=== PATIENT | female | born 1940 | race Native Hawaiian/Other Pacific Islander ===

== ENCOUNTER 2023-09-27 20:15 | Emergency (ER) | payer MEDICARE, SELFPAY ==
--- NOTE | ~2023-09-27 | XR_ITS ---
EXAMINATION: CHEST 2 VIEWS CLINICAL INFORMATION: productive cough, covid +. COMPARISON: No recent pertinent prior studies are available for comparison. TECHNIQUE: PA and lateral views of the chest obtained. FINDINGS: The lungs are mildly hypoexpanded with coarsened reticular markings bilaterally. No focal infiltrate, effusion, edema, or pneumothorax. Cardiac and mediastinal silhouettes are within normal limits for size with occasional within the tortuous aorta. Degenerative changes in the spine and shoulders.. No acute bony abnormality seen XR/XR chest 2V IMPRESSION: Mildly hypoexpanded with coarsened reticular markings but no focal airspace disease.
[2023-09-27 20:28] VITALS: BP 148/82; PULSE 86; O2SAT 97
[2023-09-27 20:29] VITALS: BP 131/49; PULSE 80; RESP 20; TEMP 38.3; O2SAT 96; BMI 22.3
--- NOTE | 2023-09-27 20:33 | ED_ITS ---
HPI - General Adult General Chief complaint: Dyspnea Stated complaint: SOB. COVID + Time Seen by Provider: 09/27/23 22:11 Source: patient, family (patient's daughter), EMS and engineering and operations director Mode of arrival: EMS Limitations: language barrier History of Present Illness HPI narrative: Patient is an 83 year old assigned female at with a history of DM presenting to the emergency department today with increased weakness secondary to COVID-19. Patient's daughter states that the patient is visiting from [place] and today, tested positive for COVID-19. Patient's daughter states that the patient has been weak so they thought it best to get her evaluated. Patient denies any dizziness, lightheadedness, abdominal pain, nausea, vomiting, fever, chills, blurry vision, double vision, loss of vision, chest pain, difficulty breathing, shortness of breath, back pain, night sweats, pain with urination, increased urinary frequency, increased urinary urgency, blood in her urine or stool, syncope or a near syncopal episode, recent trauma or falls, bowel incontinence, bladder incontinence, bowel retention, bladder retention, or any other complaints at this time. Onset (ago): day(s) (1) Severity: mild Relieving factors: none Exacerbating factors: none Associated symptoms: weakness Treatments prior to arrival: none Related Data Allergies Allergy/AdvReac Type Severity Reaction Status Date / Time No Known Allergies Allergy Verified 09/27/23 20:35 Review of Systems 2 Constitutional: Constitutional: Reports no additional constitutional complaints, Denies chills, Denies fever(s), Denies night sweats and Reports weakness Eyes: Eyes: Reports no additional eye complaints, Denies blurry vision, Denies change in vision, Denies diplopia, Denies eye discharge, Denies loss of vision and Denies eye pain ENT: Denies dizziness Cardiovascular: Cardiovascular: Reports no additional cardiovascular complaints, Denies chest pain, Denies lightheadedness, Denies Loss of Consciousness and Denies dyspnea Respiratory: Respiratory: Reports no additional respiratory complaints and Denies dyspnea Gastrointestinal: Gastrointestinal: Reports no additional gastrointestinal complaints, Denies abdominal pain, Denies melena, Denies hematochezia, Denies change in bowel habits and Denies change in stool character Genitourinary: Genitourinary: Denies hematuria, Denies urinary frequency, Denies dysuria, Denies urinary incontinence, Denies urinary hesitancy and Denies urinary urgency Musculoskeletal: Musculoskeletal: Reports no additional musculoskeletal complaints, Denies numbness and Denies tingling Neurologic: Denies dizziness, Denies loss of vision, Denies numbness, Denies tingling and Reports weakness Psychiatric: Psychiatric: Reports no additional psychiatric complaints Endocrine: Endocrine: Reports no additional endocrine complaints Hematologic/Lymphatic: Hematologic/Lymphatic: Reports no additional hematologic/lymphatic complaints Allergic/Immunologic: Allergic/Immunologic: Reports no additional allergic/immunologic complaints PMFSH Past Medical History Attestation statement: The following information was validated with the patient. (all information validated with the patient's daughter) Source: old records reviewed, obtained from family (patient's daughter provided additional history and confirmed the history provided by the patient.) and nursing notes reviewed Social History Social History Advance Directives: No Advance Directives Information Provided: No Physical Exam ED Vital Signs: Vital Signs - 24 hr 09/27/23 20:29 09/27/23 22:39 09/27/23 22:40 Temperature 100.9 F H 99.0 F 99.0 F Pulse Rate 80 Respiratory Rate 20 16 Blood Pressure 131/49 L Pulse Oximetry 96 Oxygen Delivery Method Room Air BMI result Body Mass Index 22.3 Const General: cooperative, no acute distress, alert and awake Nutritional Appearance: well nourished Orientation/consciousness: patient oriented x3 Limitations: no limitations HENMT Head: Yes normal to inspection and Yes atraumatic Ears: hearing grossly normal bilaterally and external ears normal General nose exam: Normal external nose present, no nasal discharge noted and no epistaxis Face and sinus: Yes normal facial exam, No abrasion and No laceration Mouth: Normal oral and palatal mucosa present, no drooling and no muffled voice Eyes General: appearance normal, both eyes and all related structures Periorbital: periorbital findings normal Eyelids: Yes eyelids normal Conjunctivae: conjunctivae normal Pupils: Equal, round and reactive pupils present EOM: EOMs intact bilaterally Neck Neck: Yes normal visual inspection, Yes full ROM and Yes no lymphadenopathy Chest Chest palpation & inspection: normal inspection of the chest Resp Effort & Inspection: normal respiratory effort and able to speak in complete sentences Auscultation: clear to auscultation bilaterally GI Inspection: Yes normal to inspection Neuro General: patient oriented x3 and moves all extremities Cranial nerves: Yes Equal, round and reactive pupils present Cognition (Neuro): normal cognition Motor exam (neuro): 5/5 motor strength present throughout Sensory Exam: Normal double simultaneous stimulation for sensation Coordination: [id number] test normal Extrem General: Yes normal to inspection, Yes full ROM and Yes capillary refill normal Psych Appearance: grossly normal Mental Status: mental status grossly normal Affect: normal affect Attitude: cooperative Thought process: Normal thought process present Thought content: Normal thought content present Insight: Good insight present (Psych) Course Course Course Narrative: This is a rapid medical exam: Additional HPI, ROS, PE not included below will be deferred to primary provider. Patient is an 83-year-old female presenting to the emergency department with complaint of difficulty breathing tonight. Patient tested positive for COVID this morning, has been symptomatic for the past 2 days. Also reports fever. States cough is productive. who is also positive for Covid was concerned and called 911. Daughter is here with patient and states they are visiting from [place]. Patient last took Tylenol at 2pm. Febrile in triage. Plan: CXR, labs Medications Administered Discontinued Medications Generic Name Dose Route Start Last Admin Trade Name Freq PRN Reason Stop Dose Admin Acetaminophen 650 mg 09/27/23 20:35 09/27/23 20:37 Acetaminophen 325 Mg Tablet PO 09/27/23 20:36 650 mg ONCE ONE Administration Medical Decision Making Medical Decision Making [facility] Narrative: Patient is an 83 year old assigned female at with a history of DM presenting to the emergency department today with weakness and COVID-19. Patient's physical exam was unremarkable. Patient's blood work was unremarkable. Patient's chest x-ray showed no acute process. I explained my physical exam findings as well as all test results to the patient and the patient's daughter. I answered all questions asked by the patient and the patient's daughter. I stressed the importance of the patient taking her medication as prescribed. I stressed the importance of the patient following up with her primary care provider. I stressed the importance of the patient returning to the emergency department immediately if her symptoms were to worsen or if she were to develop any dizziness, shortness of breath, difficulty breathing, chest pain, blurry vision, loss of vision, nausea, vomiting, abdominal pain, fever, chills, back pain, or any other complaints. Patient and the patient's daughter verbalized agreement and understanding with this treatment plan and discharge. Differential Diagnosis Differential Diagnoses: The differential diagnosis associated with the presentation includes COVID-19 Weakness Admission/Observation Consideration of admission/observation: Escalation of care including admission/observation considered Patient would have been admitted to the hospital had her work up had any findings where hospital admission was appropriate and her clinical presentation warranted hospital admission. Lab Data MDM Lab Attestation statement: I reviewed the patient's lab results. My interpretation of these studies and their corresponding values is that they are grossly normal. 09/27/23 20:44 09/27/23 20:44 Labs: Lab Results 09/27/23 Range/Units 20:44 WBC 4.4 L (4.8-10.8) X10*3/uL RBC 3.99 L (4.20-5.50) X10*6/uL Hgb 10.2 L (12.0-16.0) g/dl Hct 33.0 L (37.0-47.0) % MCV 82.7 (80.0-98.0) fL MCH 25.6 L (27.0-33.0) pg MCHC 30.9 L (31.0-35.0) g/dl RDW 16.0 (11.0-16.0) % Plt Count 113 L (160-400) X10*3/uL MPV 9.3 L (9.4-12.3) fL Immature Gran % (Auto) 0.2 (0.0-0.4) % Neut % (Auto) 73.7 H (45-73) % Lymph % (Auto) 14.8 L (20-40) % [place] % (Auto) 11.1 H (2-11) % Eos % (Auto) 0.0 (0-4) % Baso % (Auto) 0.2 (0-2) % Lymph # (Auto) 0.7 L (1.2-4.9) X10*3/uL [place] # (Auto) 0.5 (0.1-1.2) X10*3/uL Eos # (Auto) 0.0 (0.0-0.4) X10*3/uL Baso # (Auto) 0.0 (0.0-0.2) X10*3/uL Abs Immat Gran (auto) 0.01 (0.00-0.03) X10*3/uL Absolute Neuts (auto) 3.2 (2.0-8.3) x10*3/uL Absolute Nucleated RBC 0.000 (0.0-0.012) X10*3/uL Nucleated RBC % (auto) 0.0 (0.0-0.2) /100WBC Sodium 137 (135-145) mmol/L Potassium 4.0 (3.3-5.1) mmol/L Chloride 105 (96-108) mmol/L Carbon Dioxide 23 (22-29) mmol/L Anion Gap 13 (12-20) BUN 12 (9-16) mg/dL Creatinine 0.72 (0.5-1.4) mg/dL Estim Creat Clear Calc 39.6 Estimated GFR > 60 Random Glucose 216 H (60-115) mg/dL Calcium 8.9 (8.4-10.2) mg/dL Total Bilirubin 1.0 (0.0-1.0) mg/dL AST 113 H (5-31) U/L ALT 58 H (0-31) U/L Alkaline Phosphatase 105 (39-117) U/L Total Protein 7.5 (6.5-8.0) g/dL Albumin 3.9 (3.5-5.0) g/dL Independent Interpretation I performed an independent interpretation of an: Plain X-Ray Interpretation: My interpretation is in agreement with the radiologist's impression of this imaging study. - EXAMINATION: CHEST 2 VIEWS CLINICAL INFORMATION: productive cough, covid +. COMPARISON: No recent pertinent prior studies are available for comparison. TECHNIQUE: PA and lateral views of the chest obtained. FINDINGS: The lungs are mildly hypoexpanded with coarsened reticular markings bilaterally. No focal infiltrate, effusion, edema, or pneumothorax. Cardiac and mediastinal silhouettes are within normal limits for size with occasional within the tortuous aorta. Degenerative changes in the spine and shoulders.. No acute bony abnormality seen XR/XR chest 2V IMPRESSION: Mildly hypoexpanded with coarsened reticular markings but no focal airspace disease. Dictated By: Joey Ahmadi MD Signed By: Electronically signed by Joey Ahmadi MD 09/27/23 8064 Radiology Impression Discussion of test interpretation with radiology: I have reviewed the radiologist's reading. Independent Historian Clinical information obtained from an independent historian. History obtained from or confirmed by: EMS (EMS provided additional history and confirmed the history provided by the patient.) and Other (patient's daughter provided additional history and confirmed the history provided by the patient.) Prescription Management I considered prescription management with: Antiviral (Paxlovid was considered however, through shared decision making with the patient and her family, it was determined not to prescribe it at this time.) Chronic Conditions Patient?s care impacted by: Diabetes Discharge Plan Discharge Clinical Impression: COVID-19 Patient Disposition: Home, Self-Care Instructions: COVID-19 (Coronavirus Disease 2019) (ED) Additional Instructions: Follow up with your primary care provider. Return to the emergency department immediately if your symptoms worsen or if you develop any dizziness, shortness of breath, difficulty breathing, chest pain, blurry vision, loss of vision, nausea, vomiting, abdominal pain, fever, chills, back pain, or any other complaints. Interventions: ED Discharge Assessment Last Done: 09/27/23 22:40 Discharge Date/Time: 09/27/23 22:41 Print Language: [place]
[2023-09-27] MEDS: Acetaminophen 325 MG TABLET 650 MG PO (20:37)
[2023-09-27 20:48] LABS: MANUAL DIFF FLAG NO
[2023-09-27 20:49] LABS: Basophils Percent Auto 0.2 % (0-2); Hemoglobin 10.2 g/dl (12.0-16.0); Imm Gran Abs Auto 0.01 X10*3/uL (0.00-0.03); Imm Gran Pct Auto 0.2 % (0.0-0.4); Lymphocytes Absolute Auto 0.7 X10*3/uL (1.2-4.9); Lymphocytes Percent Auto 14.8 % (20-40); Mean Corpuscular HGB Conc 30.9 g/dl (31.0-35.0); Mean Corpuscular Hemoglobin 25.6 pg (27.0-33.0); Mean Corpuscular Volume 82.7 fL (80.0-98.0); Mean Platelet Volume 9.3 fL (9.4-12.3); Monocytes Absolute Auto 0.5 X10*3/uL (0.1-1.2); Monocytes Percent Auto 11.1 % (2-11); Neutrophils Absolute Auto 3.2 x10*3/uL (2.0-8.3); Neutrophils Percent Auto 73.7 % (45-73); Platelet Count 113 X10*3/uL (160-400); Red Blood Count 3.99 X10*6/uL (4.20-5.50); White Blood Count 4.4 X10*3/uL (4.8-10.8)
[2023-09-27 21:05] LABS: Alanine Aminotransferase 58 U/L (0-31); Albumin Level 3.9 g/dL (3.5-5.0); Alkaline Phosphatase 105 U/L (39-117); Anion Gap 13 (12-20); Aspartate Amino Transferase 113 U/L (5-31); Blood Urea Nitrogen 12 mg/dL (9-16); Calcium 8.9 mg/dL (8.4-10.2); Carbon Dioxide 23 mmol/L (22-29); Chloride 105 mmol/L (96-108); Creatinine Clr Calc Pharmacy 39.6; Estimated Glomerular Filt Rate > 60; Glucose Random 216 mg/dL (60-115); Sodium 137 mmol/L (135-145); Total Protein 7.5 g/dL (6.5-8.0)
[2023-09-27 22:39] VITALS: TEMP 37.2
[2023-09-27 22:40] VITALS: RESP 16; TEMP 37.2
== END 2023-09-27 22:41 | disposition home or self-care (01) ==
PROVIDERS: Registered Nurse Emergency; Emergency Provider Emergency Medicine
DX: U07.1 COVID-19 (principal); E11.9 Type 2 diabetes mellitus without complications
CPT/HCPCS: 36415; 71046; 80053; 85025; 99283

== ENCOUNTER 2023-10-02 16:47 | Inpatient (IN) | payer MEDICARE, SELFPAY ==
--- NOTE | 2023-10-02 16:56 | ED.GENADULT ---
HPI - General Adult General Chief complaint: General Medical Stated complaint: COVID+, worsening symptoms per EMS Time Seen by Provider: 10/02/23 16:51 History of Present Illness HPI narrative: 83 y/o F patient; PMH T2DM, HLD, HTN; presents from home with increased weakness possibly secondary to known COVID-19 diagnosis. Patient tested positive for COVID on 09/27/2023 while visiting her daughter from [place]. She was seen in this ED where she had labs and a CXR completed which were reassuring. Since her discharge to home she has had decreased PO intake for the last 2 days. Yesterday she had an unwitnessed fall with headstrike on concrete. Unclear if LOC. Fall was heard and patient's daughter was able to get her up with assistance. This morning patient was noticed to be weaker than normal needing two people to support her gait which is not typical. She also reported an occipital headache. She otherwise denies: current headache, visual changes, neck pain, cough/congestion, SOB, chest pain, nausea/vomiting, diarrhea, abdominal pain, dysuria. Prior to COVID diagnosis patient was able to ambulate without difficulty including walking on and off plane, walking up and down stairs. Related Data Allergies Allergy/AdvReac Type Severity Reaction Status Date / Time No Known Allergies Allergy Verified 09/27/23 20:35 Review of Systems Review of Systems: Yes all other systems are reviewed and are negative Neurologic: Denies Sensory deficit (Neuro) [facility] Past Medical History Attestation statement: The following information was validated with the patient. Source: unable to obtain Onset Date is defined in the Problem List Problems that require an onset date and time if occurred within 24 hrs of arrival to the ED Aortic Dissection and Rupture; Neurologic impairment; Cardiopulmonary Arrest; Endotracheal Intubation; Insertion or Replacement of Mechanical Circulatory Assist Device Social History Social History Smoked in Last 30 Days: No Use of substances other than those prescribed or required for medical reasons: No Advance Directives: No Advance Directives Information Provided: No Physical Exam ED Vital Signs: Vital Signs - 24 hr 10/02/23 17:00 10/02/23 17:20 10/02/23 18:13 Temperature 98.6 F 98.4 F Pulse Rate 81 77 80 Respiratory Rate 18 19 18 Blood Pressure 124/56 L 126/61 128/55 L Pulse Oximetry 95 95 95 Oxygen Delivery Method Room Air Room Air Room Air BMI result Body Mass Index 22.4 Patient is afebrile and hemodynamically stable. Const General: cooperative Orientation/consciousness: patient oriented x3 HENMT Head: Yes normal to inspection and Yes atraumatic Eyes General: appearance normal, both eyes and all related structures Pupils: Equal, round and reactive pupils present EOM: EOMs intact bilaterally Neck Neck: Yes full ROM, Yes supple and No tender Chest Chest palpation & inspection: normal inspection of the chest and normal palpation of entire chest wall Resp Effort & Inspection: normal respiratory effort, able to speak in complete sentences and no respiratory distress Auscultation: clear to auscultation bilaterally Cardio Rate: regular rate Rhythm: regular rhythm Peripheral pulses: Peripheral pulses 2+ throughout GI Inspection: Yes normal to inspection, No Abdominal wall edema and No distended Palpation (GI): Soft to palpation, not firm, nontender, no guarding and not rigid Auscultation: normal bowel sounds Back/Spine/Pelvis Back: No ecchymosis and No back tenderness Neuro General: patient oriented x3, moves all extremities and CN's II-XI intact bilaterally Cranial nerves: Yes Equal, round and reactive pupils present Motor exam (neuro): Other motor observations present (LLE 3/5 strength, RLE 5/5 strength ) Sensory Exam: No Sensory deficit (Neuro) Course Course Course Narrative: Patient is afebrile and hemodynamically stable. Will obtain EKG, CXR, CT Head/Neck, and basic labs. Reevaluation(s) Reevaluation #1: CXR unremarkable. CT Head/Cervical Spine negative for acute traumatic changes. Evidence of paranasal sinus disease. Laboratory studies reviewed. Troponin negative. Mild leukopenia. Mild anemia. Improvement in transaminitis compared to 09/27/2023. Reevaluation #2: Ambulated patient with significant difficulty. Patient with shuffling gait. Does not pick and shovel man feet. Is not able to support own weight on feet. Appears to have increased left lower leg weakness compared to right lower leg. Believe patient would benefit from MRI Brain. Also added folate and B12 levels. Medical Decision Making Lab Data 10/02/23 18:31 10/02/23 18:31 Labs: Lab Results 10/02/23 Range/Units 18:31 WBC 4.0 L (4.8-10.8) X10*3/uL RBC 3.85 L (4.20-5.50) X10*6/uL Hgb 9.9 L (12.0-16.0) g/dl Hct 31.1 L (37.0-47.0) % MCV 80.8 (80.0-98.0) fL MCH 25.7 L (27.0-33.0) pg MCHC 31.8 (31.0-35.0) g/dl RDW 15.5 (11.0-16.0) % Plt Count 165 D (160-400) X10*3/uL MPV 8.4 L (9.4-12.3) fL Immature Gran % (Auto) 1.0 H (0.0-0.4) % Neut % (Auto) 58.4 (45-73) % Lymph % (Auto) 24.9 (20-40) % [place] % (Auto) 15.5 H (2-11) % Eos % (Auto) 0.0 (0-4) % Baso % (Auto) 0.2 (0-2) % Lymph # (Auto) 1.0 L (1.2-4.9) X10*3/uL [place] # (Auto) 0.6 (0.1-1.2) X10*3/uL Eos # (Auto) 0.0 (0.0-0.4) X10*3/uL Baso # (Auto) 0.0 (0.0-0.2) X10*3/uL Abs Immat Gran (auto) 0.04 H (0.00-0.03) X10*3/uL Absolute Neuts (auto) 2.3 (2.0-8.3) x10*3/uL Absolute Nucleated RBC 0.000 (0.0-0.012) X10*3/uL Nucleated RBC % (auto) 0.0 (0.0-0.2) /100WBC Sodium 134 L (135-145) mmol/L Potassium 4.4 (3.3-5.1) mmol/L Chloride 101 (96-108) mmol/L Carbon Dioxide 23 (22-29) mmol/L Anion Gap 14 (12-20) BUN 11 (9-16) mg/dL Creatinine 0.68 (0.5-1.4) mg/dL Estim Creat Clear Calc 44.2 Estimated GFR > 60 Random Glucose 175 H (60-115) mg/dL Calcium 9.3 (8.4-10.2) mg/dL Total Bilirubin 0.9 (0.0-1.0) mg/dL Direct Bilirubin 0.4 (0.0-0.5) mg/dL AST 50 H (5-31) U/L ALT 39 H (0-31) U/L Alkaline Phosphatase 130 H (39-117) U/L Troponin I High Sens < 2.7 (<3.5-17.0) ng/L Total Protein 7.4 (6.5-8.0) g/dL Albumin 3.5 (3.5-5.0) g/dL Lipase 41 (8-78) U/L Radiology Impression Discussion of test interpretation with radiology: I have reviewed the radiologist's reading. Radiologist Impression: EXAMINATION: XR CHEST CLINICAL INFORMATION: Weakness. COMPARISON: Chest radiograph dated 09/27/2023. TECHNIQUE: Frontal view of the chest was obtained. FINDINGS: The trachea is in normal anatomic position. Cardiomediastinal silhouette is normal in size and configuration. There is no consolidative process within either lung. No pleural effusion or pneumothorax. No acute osseous abnormality. There are degenerative changes of the spine and shoulders. XR/XR chest 1V IMPRESSION: Stable appearance of the heart and lungs. No consolidation. EXAMINATION: CT HEAD WITHOUT CONTRAST CT CERVICAL SPINE WITHOUT CONTRAST CLINICAL INFORMATION: Fall. COMPARISON: None TECHNIQUE: Contiguous axial imaging was performed from the skull base to vertex without intravenous administration of contrast. Contiguous axial imaging was performed from the upper chest through the skull base without intravenous administration of contrast. Coronal and sagittal reformats were obtained at the acquisition workstation. This CT examination was performed using dose optimization techniques as appropriate, variously including the following: *Automated exposure control *Adjustment of mA and/or kV according to patient size (this includes techniques or standardized protocols for targeted exams where dose is matched to indication/reason for exam; i.e. extremities or head) *Use of iterative reconstruction technique DLP: 516 and 267 mGy-cm FINDINGS: Head: There is no evidence of acute intracranial hemorrhage or edematous territorial infarction. A few foci of hypoattenuation in the periventricular and deep white matter are consistent with mild microangiopathy. Patel-white matter differentiation is preserved. Proportional prominence of the ventricles and sulcal spaces. No evidence for obstructive hydrocephalus. No abnormal mass effect or midline shift. No extra-axial fluid collections. No acute soft tissue or osseous abnormalities. Near complete opacification of the paranasal sinuses with air-fluid levels. Trace right mastoid effusion. Middle ear cavities are clear. Cervical Spine: The atlantooccipital and atlantoaxial articulations remain well aligned. Straightening of the normal cervical lordosis. Otherwise, there is anatomic alignment of the vertebral bodies and posterior elements. No evidence of acute fracture or subluxation. Mild multilevel intervertebral disc height loss and facet arthropathy. There is no prevertebral soft tissue swelling. The thyroid gland and remaining cervical soft tissues are normal in appearance. The lung apices demonstrate biapical subpleural thickening/scarring. CT/CT cervical spine wo IV con IMPRESSION: 1. No acute intracranial pathology. 2. No acute cervical spinal fractures or traumatic subluxation. 3. Significant paranasal sinus disease, correlate clinically. Discharge Plan Discharge Clinical Impression: COVID-19, Weakness Patient Disposition: Admitted As Inpatient
[2023-10-02 17:00] VITALS: BP 124/56; BP 162/98; PULSE 81; PULSE 85; RESP 18; TEMP 37; O2SAT 95; BMI 22.4
[2023-10-02 17:20] VITALS: BP 126/61; PULSE 77; RESP 19; TEMP 36.9; O2SAT 95
[2023-10-02 18:13] VITALS: BP 128/55; PULSE 80; RESP 18; O2SAT 95
[2023-10-02 20:00] VITALS: BP 150/61; PULSE 87; RESP 14; O2SAT 97
--- NOTE | 2023-10-02 20:13 | PHA.MEDREC ---
Pharmacy Consult ? Medication Reconciliation Pharmacy has completed the medication reconciliation. Family had rx bottles. Sary Strickland, PharmD
--- NOTE | 2023-10-02 20:51 | PM.IMHP ---
History of Present Illness Date of Service: 10/02/23 Attending physician on admission: Josie Amin Chief Complaint: Generalized weakness, unable to walk Pt is an 83-year-old female with a PMH significant for?HLD, zcj-exymnht-kvissxash diabetes type 2, and peripheral neuropathy who presents to the ED with?with generalized weakness and sudden onset inability to walk x6 days. Patient and her live in [place] and are visiting their daughters and their families for the holidays. Symptoms started on 09/26/2023 when patient suddenly could not walk. Tested positive for COVID the following day on 09/27/2023 and was seen and evaluated at the ED. workup was negative and patient was discharged home without any intervention. Prior to COVID diagnosis pt was able to ambulate on her own without assistance, walking on and off the plane and up and down stairs. Patient today presents as slightly confused and uncertain exactly why she is here, so HPI supplemented by family who is at bedside. Family notes that since initial presentation to the ED patient's condition continued to decline. Patient has continued to not be able to walk, has had declining strength and increasing shakiness in upper extremities, and has had worsening confusion. Patient does not have a diagnosis of dementia, and she is currently much more confused than she has ever been according to the family. They note there are times when patient is unable to recognize family members, and occasionally is unable to answer questions appropriately were changes topics unexpectedly. Patient also had a fall yesterday where she hit the back of her head on the floor, stating she was dizzy. Has also not been eating or drinking much of anything at all for the past 2 days. Family also note that she has a lack of control with her mouth when trying to eat, drink, or spit after coughing, stating it is ?almost as if she does not know where her mouth is?. In the ED patient was not able to support her own weight on her feet or able to brick picker her feet when ambulating. Was walking with a shuffling gait. Has had chronic lower back pain for a number of years. Also complains of cough productive of yellowish sputum x6 days. Patient denies shortness of breath. No chest pain/pressure, palpitations. Denies ptosis. No fever, chills, nausea, vomiting. In the ED pt was hypertensive but otherwise vitals WNL. Patient is satting at 97% on RA. Labs were significant for stable normocytic anemia 9.9/31.1, AST 50, ALT 39, alk-phos 130. Troponin negative. TSH WNL at 1.06. CXR was unremarkable with stable appearance of heart and lungs and no consolidation. CT of head negative for acute intracranial pathology, but found significant paraspinal sinus disease. CT of cervical spine negative for acute fracture or traumatic subluxation. EKG demonstrated sinus rhythm first-degree AV block but no significant ST elevations or depressions. Pt will be admitted to the hospital for treatment and further evaluation of sudden onset lower extremity weakness and acute encephalopathy in the setting of COVID infection. Review of Systems Review of Systems: Generalized weakness, especially lower extremities Increased lack of coordination of upper and lower extremities Increased confusion Cough productive of whitish sputum No shortness of breath No chest pain/pressure, palpitations Denies fever, chills, nausea, abdominal pain PMFSH Medical History (Updated 10/02/23 @ 21:31 by MACI Palacios) Non-insulin dependent type 2 diabetes mellitus HLD (hyperlipidemia) Social History Smoked in Last 30 Days: No Use of substances other than those prescribed or required for medical reasons: No Advance Directives: No Advance Directives Information Provided: No Meds Allergies Allergy/AdvReac Type Severity Reaction Status Date / Time No Known Allergies Allergy Verified 09/27/23 20:35 Active Medications: Current Medications Acetaminophen (Acetaminophen 325 Mg Tablet) 650 mg PO Q6H PRN PRN Reason: Pain, Mild (Pain Scale 1-3) Dextrose (Dextrose 50 % 25 Gm/50 Ml Syringe) 25 gm IVPUSH Q15M PRN; Protocol PRN Reason: per Hypoglycemia Standing Ord. Ezetimibe (Ezetimibe 10 Mg Tablet) 10 mg PO DAILY [facility] Enoxaparin Sodium (Enoxaparin Sodium 40 Mg/0.4 Ml Syringe) 40 mg SUBCUT Q24H [facility] Gabapentin (Gabapentin 300 Mg Capsule) 300 mg PO BID [facility] Glucose (Glucose Gel 15 Gm Gel..Gram.) 15 gm PO Q15M PRN; Protocol PRN Reason: per Hypoglycemia Standing Ord. Insulin Human Lispro (Insulin Lispro 100 Unit/Ml 3 Ml Vial) 0 unit SUBCUT QIDACHS [facility]; Protocol Melatonin (Melatonin 3 Mg Tablet) 6 mg PO BEDTIME PRN PRN Reason: Insomnia Non-Formulary Medication (Dextran 70-Hypromellose (Pf) [Artificial Tears (Pf)]) 1 drop EYE-BOTH Q2H PRN PRN Reason: Dry Eye(S) Non-Formulary Medication (Rosuvastatin) 20 mg PO BEDTIME [facility] Ondansetron HCl (Ondansetron Hcl 4 Mg/2 Ml Vial) 4 mg IVPUSH Q8H PRN PRN Reason: Nausea and Vomiting Sodium Chloride (0.9 % Sodium Chloride Flush 3 Ml Syringe) [facility] Medications Medication Instructions Recorded Confirmed Last Taken Type dextran 70-hypromellose (PF) 0.1 1 drp ophthalmic (eye) Q2H PRN Dry 10/02/23 10/02/23 Unknown History %-0.3 % eye drops in a dropperette Eye(S) (Artificial Tears (PF)) ezetimibe 10 mg tablet 10 mg PO DAILY 10/02/23 10/02/23 10/02/22 History gabapentin 300 mg capsule 300 mg PO BID neuropathic pain 10/02/23 10/02/23 10/02/22 History glimepiride 4 mg tablet 4 mg PO BID 10/02/23 10/02/23 10/02/22 History metformin 1,000 mg tablet 1,000 mg PO BID 10/02/23 10/02/23 10/02/22 History rosuvastatin 20 mg tablet 20 mg PO BEDTIME 10/02/23 10/02/23 10/01/22 History sitagliptin phosphate 50 mg tablet 50 mg PO DAILY 10/02/23 10/02/23 10/02/22 History (Natasha) vitamin E 268 mg (400 unit) capsule 268 mg PO DAILY 10/02/23 10/02/23 10/02/22 History Physical Exam Vital Signs and Narrative: Vital Signs: Last Vital Signs Temp 98.4 F 10/02/23 17:20 Pulse 87 10/02/23 20:00 Resp 14 10/02/23 20:00 BP 150/61 H 10/02/23 20:00 Pulse Ox 97 10/02/23 20:00 O2 Del Method Room Air 10/02/23 20:00 BMI result Body Mass Index 22.4 Constitutional: Alert, pleasantly confused, in no acute distress. Mental Status: Oriented to person and place but not fully to time or situation. Pt also noted to not recognize one of her daughters. Eyes: Pupils are equal, round, and reactive to light. Ear, Nose, and Throat: Oropharynx clear, mucous membranes moist. Ears and nose without deformities. Trachea midline. Respiratory: Clear to auscultation bilaterally. No wheezing, rales, or rhonchi. Cardiovascular: S1, S2 regular. No murmurs, rubs, or gallops. Gastrointestinal: Abdomen soft, non-tender, non-distended. Normal bowel sounds. Neurologic: Cranial nerves II-XII are grossly intact bilaterally. 2/5 strength of lower extremities bilaterally. 4/5 strength of upper extremities bilaterally. Skin: Warm, dry. Musculoskeletal: No cyanosis or clubbing. Extremities: No edema. Psychiatric: Normal mood and affect. Results Labs 10/02/23 18:31 10/02/23 18:31 Labs: Laboratory Results - last 24 hr 10/02/23 18:31 MCV 80.8 MCH 25.7 L MCHC 31.8 RDW 15.5 Plt Count 165 D MPV 8.4 L Immature Gran % (Auto) 1.0 H Neut % (Auto) 58.4 Lymph % (Auto) 24.9 [place] % (Auto) 15.5 H Eos % (Auto) 0.0 Baso % (Auto) 0.2 Lymph # (Auto) 1.0 L [place] # (Auto) 0.6 Eos # (Auto) 0.0 Baso # (Auto) 0.0 Abs Immat Gran (auto) 0.04 H Absolute Neuts (auto) 2.3 Absolute Nucleated RBC 0.000 Nucleated RBC % (auto) 0.0 Anion Gap 14 Estim Creat Clear Calc 44.2 Estimated GFR > 60 Random Glucose 175 H Calcium 9.3 Total Bilirubin 0.9 Direct Bilirubin 0.4 AST 50 H ALT 39 H Alkaline Phosphatase 130 H Total Protein 7.4 Albumin 3.5 Lipase 41 Imaging Radiologist's Impressions: Impressions Chest X-Ray 10/02/23 18:10 IMPRESSION: Stable appearance of the heart and lungs. No consolidation. Cervical Spine CT 10/02/23 18:25 IMPRESSION: 1. No acute intracranial pathology. 2. No acute cervical spinal fractures or traumatic subluxation. 3. Significant paranasal sinus disease, correlate clinically. Head CT 10/02/23 18:25 IMPRESSION: 1. No acute intracranial pathology. 2. No acute cervical spinal fractures or traumatic subluxation. 3. Significant paranasal sinus disease, correlate clinically. Assessment and Plan (1) Lower extremity weakness: Qualifiers: Laterality: bilateral Qualified Code(s): R29.898 - Other symptoms and signs involving the musculoskeletal system Status: Acute (2) COVID-19: Status: Acute Plan Pt is an 83-year-old female with a PMH significant for?HLD, epp-qfmsaqz-skiqbiqtm diabetes type 2, and peripheral neuropathy who presents to the ED with?with generalized weakness and sudden onset inability to walk x6 days. Patient and her live in [place] and are visiting their daughters and their families for the holidays. Symptoms started on 09/26/2023 when patient suddenly could not walk. Tested positive for COVID the following day on 09/27/2023. Pt will be admitted to the hospital for treatment and further evaluation of sudden onset lower extremity weakness and acute encephalopathy in the setting of COVID infection. Lower extremity weakness Sudden onset x6 days, fall with headstrike yesterday Unclear etiology: in the setting of COVID infection Pt previously ambulates on own without assistance Labs unremarkable, TSH WNL, imaging negative Will check folate, B12 UA pending Neurology consult Acute encephalopathy Significantly worsening over the past 3 days Unclear etiology: In the setting of COVID infection CT of head negative for acute intracranial pathology UA pending Neurology consult Monitor mentation Transaminitis AST 50, ALT 39, alk-phos 130 Unclear etiology, baseline unknown Patient asymptomatic Pwi-zadxiog-qcypsxdma diabetes type 2 Hold metformin, glimepiride Will place on sliding scale insulin Continue Januvia Diabetic diet Peripheral neuropathy Continue gabapentin HLD Continue ezetimibe and statin Full Code Attending:?Dr. Amin DVT Prophylaxis: Lovenox Pt will require a hospitalization of at least two nights for treatment and further evaluation of sudden onset lower extremity weakness and acute encephalopathy in the setting of COVID infection. Patient will require specialist consultation, PT evaluation, and likely additional imaging and workup. Given patient's inability to ambulate on her own or take care of herself, she will require hospitalist care, monitoring, and evaluation. Quality Stroke Does the patient have a stroke diagnosis?: No VTE Prior VTE?: No VTE Risk Level:: Medical - moderate - high VTE Device Contraindication: Treatment Not Indicated VTE Drug Contraindication: N/A - Med Ordered
--- NOTE | 2023-10-02 21:49 | PC.NURSE ---
Pt medicated per MAR. Family is at the bedside. Reported the pt said she is hungry and they are feeding her egyptian food. Family stated she seems better than she was before. Pt is eating without complications. Family appears to be very involved in pt care.
[2023-10-03 07:56] VITALS: BP 126/55; PULSE 98; RESP 20; TEMP 37.1; O2SAT 92
[2023-10-03 08:00] VITALS: BP 148/65; PULSE 88; RESP 18; TEMP 36.3; O2SAT 92
--- NOTE | 2023-10-03 11:16 | HO.PM.IMPN ---
Subjective Subjective Date of Service: 10/03/23 Review of Systems Follow-up weakness, COVID encephalopathy conversive nasal congestion Physical Exam Vital Signs: Vital Signs: Last Vital Signs Temp 97.3 F 10/03/23 08:00 Pulse 88 10/03/23 08:00 Resp 18 10/03/23 08:00 BP 148/65 H 10/03/23 08:00 Pulse Ox 92 10/03/23 08:00 O2 Del Method Room Air 10/03/23 08:00 BMI result Body Mass Index 9.6 Appearing in no acute distress lung sounds are clear to auscultation heart regular rate rhythm, clear S1, S2 positive bowel sounds, abdomen is soft, nontender neuro patient is alert x3, no focal deficits Objective Data Active Medications Acetaminophen (Acetaminophen 325 Mg Tablet) 650 mg PO Q6H PRN PRN Reason: Pain, Mild (Pain Scale 1-3) Artificial Tears (Artificial Tears 15 Ml Drops) 1 drop EYE-BOTH Q2H PRN PRN Reason: Dry Eye(S) Atorvastatin Calcium (Atorvastatin Calcium 80 Mg Tablet) 80 mg PO BEDTIME [facility] Last Admin: 10/02/23 21:42 Dose: 80 mg Documented By: MAITE Dextrose (Dextrose 50 % 25 Gm/50 Ml Syringe) 25 gm IVPUSH Q15M PRN; Protocol PRN Reason: per Hypoglycemia Standing Ord. Ezetimibe (Ezetimibe 10 Mg Tablet) 10 mg PO DAILY [facility] Last Admin: 10/03/23 07:50 Dose: 10 mg Documented By: JOSEY Enoxaparin Sodium (Enoxaparin Sodium 40 Mg/0.4 Ml Syringe) 40 mg SUBCUT Q24H [facility] Last Admin: 10/02/23 21:42 Dose: 40 mg Documented By: MAITE Gabapentin (Gabapentin 300 Mg Capsule) 300 mg PO BID [facility] Last Admin: 10/03/23 07:50 Dose: 300 mg Documented By: JOSEY Glucose (Glucose Gel 15 Gm Gel..Gram.) 15 gm PO Q15M PRN; Protocol PRN Reason: per Hypoglycemia Standing Ord. Insulin Human Lispro (Insulin Lispro 100 Unit/Ml 3 Ml Vial) 0 unit SUBCUT QIDACHS [facility]; Protocol Last Admin: 10/03/23 07:50 Dose: 2 unit Documented By: JOSEY Melatonin (Melatonin 3 Mg Tablet) 6 mg PO BEDTIME PRN PRN Reason: Insomnia Ondansetron HCl (Ondansetron Hcl 4 Mg/2 Ml Vial) 4 mg IVPUSH Q8H PRN PRN Reason: Nausea and Vomiting Sitagliptin Phosphate (Sitagliptin Phosphate 50 Mg Tablet) 50 mg PO DAILY [facility] Sodium Chloride (0.9 % Sodium Chloride Flush 3 Ml Syringe) 3 ml IVFLUSH QSHIFT [facility] Last Admin: 10/03/23 07:58 Dose: Not Given Documented By: JOSEY Non-Admin Reason: See Note Vitamin E (Vitamin E (Dl,Tocopheryl Acet) 180 Mg (400 Unit) Capsule) 180 mg PO DAILY [facility] Labs 10/03/23 06:57 10/03/23 06:57 Labs: Laboratory Results - last 24 hr 10/02/23 10/02/23 10/02/23 18:31 20:19 20:56 MCV 80.8 MCH 25.7 L MCHC 31.8 RDW 15.5 Plt Count 165 D MPV 8.4 L Immature Gran % (Auto) 1.0 H Neut % (Auto) 58.4 Lymph % (Auto) 24.9 [place] % (Auto) 15.5 H Eos % (Auto) 0.0 Baso % (Auto) 0.2 Lymph # (Auto) 1.0 L [place] # (Auto) 0.6 Eos # (Auto) 0.0 Baso # (Auto) 0.0 Abs Immat Gran (auto) 0.04 H Absolute Neuts (auto) 2.3 Absolute Nucleated RBC 0.000 Nucleated RBC % (auto) 0.0 Neutrophils % (Manual) Band Neutrophils % Lymphocytes % (Manual) Monocytes % (Manual) Basophils % (Manual) Abs Neuts (Manual) Lymphocytes # (Manual) Monocytes # (Manual) Basophils # (Manual) Dohle Bodies Platelet Estimate Plt Morphology Comment RBC Morphology Polychromasia Hypochromasia Ovalocytes Acanthocytes (Spur) Anion Gap 14 Estim Creat Clear Calc 44.2 Estimated GFR > 60 POC Glucose 148 H Random Glucose 175 H Calcium 9.3 Total Bilirubin 0.9 Direct Bilirubin 0.4 AST 50 H ALT 39 H Alkaline Phosphatase 130 H Total Protein 7.4 Albumin 3.5 Lipase 41 Vitamin B12 300 Folate 12.2 TSH 1.06 10/03/23 10/03/23 10/03/23 06:57 07:30 08:42 MCV 80.9 MCH 26.1 L MCHC 32.2 RDW 15.3 Plt Count 194 MPV 9.3 L Immature Gran % (Auto) Cancelled Neut % (Auto) Cancelled Lymph % (Auto) Cancelled [place] % (Auto) Cancelled Eos % (Auto) Cancelled Baso % (Auto) Cancelled Lymph # (Auto) Cancelled [place] # (Auto) Cancelled Eos # (Auto) Cancelled Baso # (Auto) Cancelled Abs Immat Gran (auto) Cancelled Absolute Neuts (auto) Cancelled Absolute Nucleated RBC 0.020 H Nucleated RBC % (auto) 0.4 H Neutrophils % (Manual) 59 Band Neutrophils % 9 H Lymphocytes % (Manual) 16 L Monocytes % (Manual) 15 H Basophils % (Manual) 1 Abs Neuts (Manual) 3.6 Lymphocytes # (Manual) 0.8 L Monocytes # (Manual) 0.8 Basophils # (Manual) 0.1 Dohle Bodies PRESENT Platelet Estimate NORMAL Plt Morphology Comment NORMAL RBC Morphology NOTED Polychromasia 1+ (0-2) Hypochromasia 1+ (5-14) Ovalocytes 1+ (5-14) Acanthocytes (Spur) 1+ (0-2) Anion Gap 15 Estim Creat Clear Calc 45.6 Estimated GFR > 60 POC Glucose 183 H 296 H Random Glucose 199 H Calcium 9.1 Total Bilirubin Direct Bilirubin AST ALT Alkaline Phosphatase Total Protein Albumin Lipase Vitamin B12 Folate TSH Assessment and Plan (1) Weakness: Status: Acute Plan Pt is an 83-year-old female with a PMH significant for?HLD, dds-dwirapl-gxluwluee diabetes type 2, and peripheral neuropathy who presents to the ED with?with generalized weakness and sudden onset inability to walk x6 days. Patient and her live in [place] and are visiting their daughters and their families for the holidays. Symptoms started on 09/26/2023 when patient suddenly could not walk. Tested positive for COVID the following day on 09/27/2023. Pt will be admitted to the hospital for treatment and further evaluation of sudden onset lower extremity weakness and acute encephalopathy in the setting of COVID infection. 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 covid encephalopathy, no obvious upper motor neuron signs, comservative management for now, with PT/OT, im symptoms worsen check LP, if symptoms extend to arms or face may be secondary ti demyelinating neuropathy (tx with IVIG if thats the case) Acute encephalopathy Significantly worsening over the past 3 days Unclear etiology: In the setting of COVID infection CT of head negative for acute intracranial pathology UA pending Neurology consult Monitor mentation Transaminitis AST 50, ALT 39, alk-phos 130 Unclear etiology, baseline unknown Patient asymptomatic Otx-qsfodxi-wejxwbupi diabetes type 2 Hold metformin, glimepiride sliding scale insulin Continue Januvia Diabetic diet Peripheral neuropathy Continue gabapentin HLD Continue ezetimibe and statin Full Code Attending:?Dr. Matt DVT Prophylaxis: Lovenox Pt will require a hospitalization of at least two nights for treatment and further evaluation of sudden onset lower extremity weakness and acute encephalopathy in the setting of COVID infection. Patient will require specialist consultation, PT evaluation, and likely additional imaging and workup. Given patient's inability to ambulate on her own or take care of herself, she will require hospitalist care, monitoring, and evaluation. Quality Stroke Does the patient have a stroke diagnosis?: No VTE Prior VTE?: No VTE Risk Level:: Medical - moderate - high VTE Device Contraindication: Treatment Not Indicated VTE Drug Contraindication: N/A - Med Ordered
[2023-10-03 11:50] VITALS: BP 139/62; PULSE 84; RESP 18; TEMP 36.4; O2SAT 92
--- NOTE | 2023-10-03 12:53 | PM.NEUROCN ---
History of Present Illness Data of Consult Service Date: 10/03/23 Primary Care Provider: Unknown Physician HPI Reason for consult: Generalized weakness 83-year-old female with a PMH significant for?HLD, dlb-ilwltlg-jprzmthnx diabetes type 2, and peripheral neuropathy who presents to the ED with?with generalized weakness and sudden onset inability to walk x6 days. She said that she was feeling little bit better now. She was diagnosed with COVID and was admitted on COVID floor. There was no sign of any seizure-like activity. Review of Systems Review of Systems: Generalize lethargy and weakness. [facility] Past Medical History Medical History Non-insulin dependent type 2 diabetes mellitus HLD (hyperlipidemia) Social History Social History Patient Tobacco Use Status: Never used Tobacco Second Hand Smoke Exposure: No Meds Allergies Allergy/AdvReac Type Severity Reaction Status Date / Time No Known Allergies Allergy Verified 09/27/23 20:35 Active Medications: Current Medications Acetaminophen (Acetaminophen 325 Mg Tablet) 650 mg PO Q6H PRN PRN Reason: Pain, Mild (Pain Scale 1-3) Artificial Tears (Artificial Tears 15 Ml Drops) 1 drop EYE-BOTH Q2H PRN PRN Reason: Dry Eye(S) Atorvastatin Calcium (Atorvastatin Calcium 80 Mg Tablet) 80 mg PO BEDTIME [facility] Last Admin: 10/02/23 21:42 Dose: 80 mg Dextrose (Dextrose 50 % 25 Gm/50 Ml Syringe) 25 gm IVPUSH Q15M PRN; Protocol PRN Reason: per Hypoglycemia Standing Ord. Ezetimibe (Ezetimibe 10 Mg Tablet) 10 mg PO DAILY [facility] Last Admin: 10/03/23 07:50 Dose: 10 mg Enoxaparin Sodium (Enoxaparin Sodium 40 Mg/0.4 Ml Syringe) 40 mg SUBCUT Q24H [facility] Last Admin: 10/02/23 21:42 Dose: 40 mg Gabapentin (Gabapentin 300 Mg Capsule) 300 mg PO BID [facility] Last Admin: 10/03/23 07:50 Dose: 300 mg Glucose (Glucose Gel 15 Gm Gel..Gram.) 15 gm PO Q15M PRN; Protocol PRN Reason: per Hypoglycemia Standing Ord. Insulin Human Lispro (Insulin Lispro 100 Unit/Ml 3 Ml Vial) 0 unit SUBCUT QIDACHS [facility]; Protocol Last Admin: 10/03/23 12:22 Dose: 4 unit Melatonin (Melatonin 3 Mg Tablet) 6 mg PO BEDTIME PRN PRN Reason: Insomnia Ondansetron HCl (Ondansetron Hcl 4 Mg/2 Ml Vial) 4 mg IVPUSH Q8H PRN PRN Reason: Nausea and Vomiting Sitagliptin Phosphate (Sitagliptin Phosphate 50 Mg Tablet) 50 mg PO DAILY [facility] Last Admin: 10/03/23 12:22 Dose: 50 mg Sodium Chloride (0.9 % Sodium Chloride Flush 3 Ml Syringe) 3 ml IVFLUSH QSHIFT [facility] Last Admin: 10/03/23 07:58 Dose: Not Given Vitamin E (Vitamin E (Dl,Tocopheryl Acet) 180 Mg (400 Unit) Capsule) 180 mg PO DAILY [facility] Last Admin: 10/03/23 12:23 Dose: 180 mg Home Medications Medication Instructions Recorded Confirmed Last Taken Type dextran 70-hypromellose (PF) 0.1 1 drp ophthalmic (eye) Q2H PRN Dry 10/02/23 10/02/23 Unknown History %-0.3 % eye drops in a dropperette Eye(S) (Artificial Tears (PF)) ezetimibe 10 mg tablet 10 mg PO DAILY 10/02/23 10/02/23 10/02/22 History gabapentin 300 mg capsule 300 mg PO BID neuropathic pain 10/02/23 10/02/23 10/02/22 History glimepiride 4 mg tablet 4 mg PO BID 10/02/23 10/02/23 10/02/22 History metformin 1,000 mg tablet 1,000 mg PO BID 10/02/23 10/02/23 10/02/22 History rosuvastatin 20 mg tablet 20 mg PO BEDTIME 10/02/23 10/02/23 10/01/22 History sitagliptin phosphate 50 mg tablet 50 mg PO DAILY 10/02/23 10/02/23 10/02/22 History (Natasha) vitamin E 268 mg (400 unit) capsule 268 mg PO DAILY 10/02/23 10/02/23 10/02/22 History Physical Exam Vital Signs: Vital Signs: Last Vital Signs Temp 97.6 F 10/03/23 11:50 Pulse 84 10/03/23 11:50 Resp 18 10/03/23 11:50 BP 139/62 10/03/23 11:50 Pulse Ox 92 10/03/23 11:50 O2 Del Method Room Air 10/03/23 11:50 BMI result Body Mass Index 9.6 Neuro: Other: She is alert and awake with normal spontaneity of speech fluency comprehension and affect. She is following commands. Face is symmetrical. Visual fall are full. There is no focal arm or leg weakness. Plantars are flexors. Deep tendon reflexes are trace to 1+. Results Labs 10/03/23 06:57 10/03/23 06:57 Labs: Short CBC 10/02/23 10/03/23 Range/Units 18:31 06:57 WBC 4.0 L 5.3 (4.8-10.8) X10*3/uL Hgb 9.9 L 9.8 L (12.0-16.0) g/dl Hct 31.1 L 30.4 L (37.0-47.0) % Plt Count 165 D 194 (160-400) X10*3/uL BMP 10/02/23 10/03/23 18:31 06:57 Sodium 134 L 133 L Potassium 4.4 3.7 Chloride 101 100 Carbon Dioxide 23 22 BUN 11 10 Creatinine 0.68 0.66 Calcium 9.3 9.1 Liver Function 10/02/23 Range/Units 18:31 Total Bilirubin 0.9 (0.0-1.0) mg/dL Direct Bilirubin 0.4 (0.0-0.5) mg/dL AST 50 H (5-31) U/L ALT 39 H (0-31) U/L Alkaline Phosphatase 130 H (39-117) U/L Albumin 3.5 (3.5-5.0) g/dL Head CT revealed moderate to severe diffuse cerebral and cerebellar atrophy and moderate to severe chronic microvascular ischemic changes. Assessment and Plan (1) Weakness: Status: Acute 83 years old woman with underlying multifactorial (degenerative +vascular) moderate to severe dementia came to hospital with weakness and falling. She was diagnosed with COVID and was symptom medically treated. Her presentation is somewhat nonspecific and could result from COVID encephalopathy. There was possibility of Guillain-[place] syndrome or myelopathy. On examination, there was no obvious upper motor neuron signs. Because of significant underlying brain pathology, I recommend conservative symptomatic treatment for a day or 2 with PT OT. If her situation worsens, lumbar puncture is needed to analyze are spinal fluid for CSF protein and cells. Also, if weakness extent to her arms or face, clinical diagnosis can be made of demyelinating neuropathy and she could be treated with IVIG. Procedures Date of Service Date of Service: 10/03/23
[2023-10-03 16:00] VITALS: BP 122/60; PULSE 89; RESP 18; TEMP 36.9; O2SAT 92
[2023-10-03 19:33] VITALS: BP 156/70; PULSE 96; RESP 20; TEMP 37.2; O2SAT 91
[2023-10-03 23:32] VITALS: BP 139/63; PULSE 88; RESP 20; TEMP 37.1; O2SAT 90
[2023-10-04] VITALS (7 sets, daily range): BP systolic 111–139; BP diastolic 53–63; PULSE 79–88; RESP 18–20; TEMP 36.3–37.1; O2SAT 90–97
[2023-10-04 09:21] LABS: MANUAL DIFF FLAG NO
[2023-10-04 09:23] LABS: Basophils Percent Auto 0.5 % (0-2); Hematocrit 30.3 % (37.0-47.0); Hemoglobin 9.8 g/dl (12.0-16.0); Imm Gran Abs Auto 0.11 X10*3/uL (0.00-0.03); Imm Gran Pct Auto 1.4 % (0.0-0.4); Lymphocytes Absolute Auto 0.8 X10*3/uL (1.2-4.9); Lymphocytes Percent Auto 10.2 % (20-40); Mean Corpuscular HGB Conc 32.3 g/dl (31.0-35.0); Mean Corpuscular Volume 80.4 fL (80.0-98.0); Mean Platelet Volume 9.2 fL (9.4-12.3); Monocytes Absolute Auto 0.9 X10*3/uL (0.1-1.2); Monocytes Percent Auto 11.1 % (2-11); Neutrophils Absolute Auto 6.3 x10*3/uL (2.0-8.3); Neutrophils Percent Auto 76.8 % (45-73); Platelet Count 224 X10*3/uL (160-400); Red Blood Count 3.77 X10*6/uL (4.20-5.50); Red Cell Distribution Width 15.4 % (11.0-16.0); White Blood Count 8.1 X10*3/uL (4.8-10.8)
[2023-10-04 09:45] LABS: Anion Gap 14 (12-20); Blood Urea Nitrogen 11 mg/dL (9-16); Calcium 8.8 mg/dL (8.4-10.2); Carbon Dioxide 21 mmol/L (22-29); Chloride 97 mmol/L (96-108); Creatinine Clr Calc Pharmacy 20.2; Estimated Glomerular Filt Rate > 60; Potassium 3.2 mmol/L (3.3-5.1); Sodium 129 mmol/L (135-145)
[2023-10-04 09:55] LABS: Glucose Random 362 mg/dL (60-115)
--- NOTE | 2023-10-04 10:07 | HO.PM.IMPN ---
Subjective Subjective Date of Service: 10/04/23 Review of Systems Follow-up weakness, COVID encephalopathy more awake today, oob to chair still with cough Physical Exam Vital Signs: Vital Signs: Last Vital Signs Temp 98.8 F 10/04/23 07:53 Pulse 85 10/04/23 07:53 Resp 18 10/04/23 07:53 BP 130/61 10/04/23 07:53 Pulse Ox 94 10/04/23 07:53 O2 Del Method Room Air 10/04/23 07:53 BMI result Body Mass Index 9.6 Appearing in no acute distress lung sounds are clear to auscultation heart regular rate rhythm, clear S1, S2 positive bowel sounds, abdomen is soft, nontender neuro patient is alert x3, no focal deficits OSEI Objective Data Active Medications Acetaminophen (Acetaminophen 325 Mg Tablet) 650 mg PO Q6H PRN PRN Reason: Pain, Mild (Pain Scale 1-3) Artificial Tears (Artificial Tears 15 Ml Drops) 1 drop EYE-BOTH Q2H PRN PRN Reason: Dry Eye(S) Atorvastatin Calcium (Atorvastatin Calcium 80 Mg Tablet) 80 mg PO BEDTIME [facility] Last Admin: 10/03/23 20:51 Dose: 80 mg Documented By: TC Bisacodyl (Bisacodyl 5 Mg Tablet.) 5 mg PO DAILY PRN PRN Reason: Constipation Dextrose (Dextrose 50 % 25 Gm/50 Ml Syringe) 25 gm IVPUSH Q15M PRN; Protocol PRN Reason: per Hypoglycemia Standing Ord. Ezetimibe (Ezetimibe 10 Mg Tablet) 10 mg PO DAILY [facility] Last Admin: 10/04/23 08:29 Dose: 10 mg Documented By: BRIAN Enoxaparin Sodium (Enoxaparin Sodium 40 Mg/0.4 Ml Syringe) 40 mg SUBCUT Q24H [facility] Last Admin: 10/03/23 20:51 Dose: 40 mg Documented By: TC Gabapentin (Gabapentin 300 Mg Capsule) 300 mg PO BID [facility] Last Admin: 10/04/23 08:29 Dose: 300 mg Documented By: BRIAN Glucose (Glucose Gel 15 Gm Gel..Gram.) 15 gm PO Q15M PRN; Protocol PRN Reason: per Hypoglycemia Standing Ord. Guaifenesin (Guaifenesin La 600 Mg Tab.Er.12h) 600 mg PO BID [facility] Last Admin: 10/04/23 08:28 Dose: 600 mg Documented By: BRIAN Ceftriaxone Sodium 1 gm/ (Sodium Chloride) 50 mls @ 100 mls/hr IV Q24H [facility] Last Infusion: 10/03/23 17:40 Dose: Infused Documented By: LOGAN Insulin Human Lispro (Insulin Lispro 100 Unit/Ml 3 Ml Vial) 0 unit SUBCUT QIDACHS [facility]; Protocol Last Admin: 10/04/23 08:28 Dose: 2 unit Documented By: BRIAN Melatonin (Melatonin 3 Mg Tablet) 6 mg PO BEDTIME PRN PRN Reason: Insomnia Ondansetron HCl (Ondansetron Hcl 4 Mg/2 Ml Vial) 4 mg IVPUSH Q8H PRN PRN Reason: Nausea and Vomiting Sitagliptin Phosphate (Sitagliptin Phosphate 50 Mg Tablet) 50 mg PO DAILY [facility] Last Admin: 10/04/23 08:29 Dose: 50 mg Documented By: BRIAN Sodium Chloride (0.9 % Sodium Chloride Flush 3 Ml Syringe) 3 ml IVFLUSH QSHIFT [facility] Last Admin: 10/04/23 08:29 Dose: 3 ml Documented By: BRIAN Vitamin E (Vitamin E (Dl,Tocopheryl Acet) 180 Mg (400 Unit) Capsule) 180 mg PO DAILY [facility] Last Admin: 10/04/23 08:29 Dose: 180 mg Documented By: BRIAN Labs 10/04/23 08:50 10/04/23 08:50 Labs: Laboratory Results - last 24 hr 10/03/23 10/03/23 10/03/23 11:36 15:08 16:37 MCV MCH MCHC RDW Plt Count MPV Immature Gran % (Auto) Neut % (Auto) Lymph % (Auto) [place] % (Auto) Eos % (Auto) Baso % (Auto) Lymph # (Auto) [place] # (Auto) Eos # (Auto) Baso # (Auto) Abs Immat Gran (auto) Absolute Neuts (auto) Absolute Nucleated RBC Nucleated RBC % (auto) Anion Gap Estim Creat Clear Calc Estimated GFR POC Glucose 223 H 177 H Random Glucose Calcium Urine Color Yellow Urine Appearance Cloudy Urine pH 5.5 Ur Specific [place] 1.025 Urine Protein 30 (1+) H Urine Glucose (UA) >=1000 H Urine Ketones 15 Urine Blood Trace H Urine Nitrite Positive H Ur Leukocyte Esterase Negative Urine RBC 0-2 Urine WBC 0-5 Ur Squamous Epith Cells 0-2 Urine Bacteria 4+ Hyaline Casts 0-2 Urine Yeast Present 10/03/23 10/04/23 10/04/23 19:36 07:40 08:50 MCV 80.4 MCH 26.0 L MCHC 32.3 RDW 15.4 Plt Count 224 MPV 9.2 L Immature Gran % (Auto) 1.4 H Neut % (Auto) 76.8 H Lymph % (Auto) 10.2 L [place] % (Auto) 11.1 H Eos % (Auto) 0.0 Baso % (Auto) 0.5 Lymph # (Auto) 0.8 L [place] # (Auto) 0.9 Eos # (Auto) 0.0 Baso # (Auto) 0.0 Abs Immat Gran (auto) 0.11 H Absolute Neuts (auto) 6.3 Absolute Nucleated RBC 0.000 Nucleated RBC % (auto) 0.0 Anion Gap 14 Estim Creat Clear Calc 20.2 Estimated GFR > 60 POC Glucose 256 H 184 H Random Glucose 362 H* Calcium 8.8 Urine Color Urine Appearance Urine pH Ur Specific [place] Urine Protein Urine Glucose (UA) Urine Ketones Urine Blood Urine Nitrite Ur Leukocyte Esterase Urine RBC Urine WBC Ur Squamous Epith Cells Urine Bacteria Hyaline Casts Urine Yeast Assessment and Plan (1) Weakness: Status: Acute Plan Pt is an 83-year-old female with a PMH significant for?Dementia , HLD, slr-ttjfgqr-tedjdeqsb diabetes type 2, and peripheral neuropathy who presents to the ED with?with generalized weakness and sudden onset inability to walk x6 days. Patient and her live in [place] and are visiting their daughters and their families for the holidays. Symptoms started on 09/26/2023 when patient suddenly could not walk. Tested positive for COVID the following day on 09/27/2023. Pt will be admitted to the hospital for treatment and further evaluation of sudden onset lower extremity weakness and acute encephalopathy in the setting of COVID infection. 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 covid encephalopathy, no obvious upper motor neuron signs, comservative management for now, with PT/OT, im symptoms worsen check LP, if symptoms extend to arms or face may be secondary to demyelinating neuropathy (tx with IVIG if thats the case) clinically improving, moving all extremities on her own but with difficulty standing and ambulating OOB to chair with 2 assist PT consult pending Acute encephalopathy with hx of dementia better today In the setting of COVID infection and UTI CT of head negative for acute intracranial pathology Monitor mentation Transaminitis AST 50, ALT 39, alk-phos 130 Unclear etiology, baseline unknown Patient asymptomatic Skq-esbdjqk-qgqsujqgx diabetes type 2 Hold metformin, glimepiride sliding scale insulin Continue Januvia Diabetic diet Peripheral neuropathy Continue gabapentin HLD Continue ezetimibe and statin Full Code Attending:?Dr. Matt DVT Prophylaxis: Lovenox DISPO will need STR when medically clear continued hospital stay for treatment and further evaluation of sudden onset lower extremity weakness and acute encephalopathy in the setting of COVID infection and UTI Patient will require specialist consultation, PT evaluation, and likely additional imaging and workup. Given patient's inability to ambulate on her own or take care of herself, she will require hospitalist care, monitoring, and evaluation. Quality Stroke Does the patient have a stroke diagnosis?: No VTE Prior VTE?: No VTE Risk Level:: Medical - moderate - high VTE Device Contraindication: Treatment Not Indicated VTE Drug Contraindication: N/A - Med Ordered
--- NOTE | 2023-10-04 11:35 | MHC.CM.PN ---
IMM 10/04. Pt with covid-19 infection and significant weakness compared to her baseline. This CM met with pts daughter Mary at bedside for CM intake assessment. Prior to admission, pt self-care, lives in [place] and was visiting her daughters here. Pt was able to board the airplane independently prior to becoming ill. Pt currently unable to ambulate. Per hospitalist, pt will need STR before going back to [place]. PT eval pending for tomorrow. This CM discussed this with pts daughter who is in agreement with STR referrals to be placed. PCP: in [place], daughter does not know the name
--- NOTE | 2023-10-04 11:45 | MHC.CM.PN ---
IMM 10/04. Pt with covid-19 infection and significant weakness compared to her baseline. This CM met with pts daughter Mary at bedside for CM intake assessment. Prior to admission, pt self-care, lives in [place] with her and was visiting her daughters that live here. Pt was able to board the airplane independently prior to becoming ill. Pt currently unable to ambulate. Per hospitalist, pt will need STR before going back to [place]. PT eval pending for tomorrow. This CM discussed this with pts daughter who is in agreement with STR referrals to be placed. PCP: in [place], daughter does not know the name
[2023-10-05 04:00] VITALS: BP 118/56; PULSE 88; RESP 16; TEMP 36.2; O2SAT 95
[2023-10-05 07:48] VITALS: BP 109/53; PULSE 73; RESP 20; TEMP 37.6; O2SAT 97
--- NOTE | 2023-10-05 08:46 | MHC.CM.PN ---
Addendum entered by Bere Hogan RN 10/05/23 12:41: PER [facility], UNABLE TO TAKE PT UNTIL 10/07 WHEN PT IS COVID RECOVERED, [facility] ALSO REPORTING THEY WERE UNABLE TO CONFIRM PT[facility]S [facility] [facility] THAT PT JUST SWITCHED TO IN AUGUST, LIAISON WAS ALSO PROVIDED W/PT'S STRAIGHT MEDICARE NUMBER THAT WAS ON FILE WELL., PER LIAISON THEY WILL CONT TO TRY TO VERIFY PT'S INSURNACE. Original Note: EMR REVIEWED, PER HOSPITALIST [employer] RECOMMENDING STR, PT COULD BE CLEARED EARLY TODAY IF BED IF FOUND, CM WILL DISCUSS W/FAMILY PER REQUEST, CM WILL CONT TO FOLLOW.
[2023-10-05 10:38] LABS: Hematocrit 32.9 % (37.0-47.0); Hemoglobin 10.4 g/dl (12.0-16.0); Mean Corpuscular HGB Conc 31.6 g/dl (31.0-35.0); Mean Corpuscular Hemoglobin 25.6 pg (27.0-33.0); Mean Platelet Volume 8.8 fL (9.4-12.3); NRBC Pct Auto 0.2 /100WBC (0.0-0.2); Platelet Count 263 X10*3/uL (160-400); Red Blood Count 4.06 X10*6/uL (4.20-5.50); Red Cell Distribution Width 15.3 % (11.0-16.0); White Blood Count 8.2 X10*3/uL (4.8-10.8)
[2023-10-05 10:52] LABS: Anion Gap 14 (12-20); Blood Urea Nitrogen 15 mg/dL (9-16); Calcium 9.2 mg/dL (8.4-10.2); Carbon Dioxide 23 mmol/L (22-29); Chloride 98 mmol/L (96-108); Creatinine Clr Calc Pharmacy 18.4; Estimated Glomerular Filt Rate > 60; Glucose Random 267 mg/dL (60-115); Potassium 3.4 mmol/L (3.3-5.1); Sodium 132 mmol/L (135-145)
[2023-10-05 11:24] VITALS: BP 125/60; PULSE 84; RESP 20; TEMP 37.2; O2SAT 98
--- NOTE | 2023-10-05 12:09 | HO.PM.IMPN ---
Subjective Subjective Date of Service: 10/05/23 Review of Systems Follow-up weakness, COVID encephalopathy more awake today, oob to chair still with cough Physical Exam Vital Signs: Vital Signs: Last Vital Signs Temp 99.0 F 10/05/23 11:24 Pulse 84 10/05/23 11:24 Resp 20 10/05/23 11:24 BP 125/60 10/05/23 11:24 Pulse Ox 98 10/05/23 11:24 O2 Del Method Nasal Cannula 10/05/23 11:24 O2 Flow Rate 2 10/05/23 11:24 BMI result Body Mass Index 9.6 Appearing in no acute distress lung sounds are clear to auscultation heart regular rate rhythm, clear S1, S2 positive bowel sounds, abdomen is soft, nontender neuro patient is alert x3, no focal deficits Objective Data Active Medications Acetaminophen (Acetaminophen 325 Mg Tablet) 650 mg PO Q6H PRN PRN Reason: Pain, Mild (Pain Scale 1-3) Artificial Tears (Artificial Tears 15 Ml Drops) 1 drop EYE-BOTH Q2H PRN PRN Reason: Dry Eye(S) Atorvastatin Calcium (Atorvastatin Calcium 80 Mg Tablet) 80 mg PO BEDTIME [facility] Last Admin: 10/04/23 20:58 Dose: 80 mg Documented By: PEREZ Bisacodyl (Bisacodyl 5 Mg Tablet.Dr) 5 mg PO DAILY PRN PRN Reason: Constipation Bisacodyl (Bisacodyl 10 Mg Supp.Rect) 10 mg [place] BID PRN PRN Reason: Constipation Last Admin: 10/04/23 19:01 Dose: 10 mg Documented By: BRIAN Dextrose (Dextrose 50 % 25 Gm/50 Ml Syringe) 25 gm IVPUSH Q15M PRN; Protocol PRN Reason: per Hypoglycemia Standing Ord. Ezetimibe (Ezetimibe 10 Mg Tablet) 10 mg PO DAILY [facility] Last Admin: 10/05/23 08:17 Dose: 10 mg Documented By: JOSE Enoxaparin Sodium (Enoxaparin Sodium 40 Mg/0.4 Ml Syringe) 40 mg SUBCUT Q24H [facility] Last Admin: 10/04/23 21:00 Dose: 40 mg Documented By: PEREZ Gabapentin (Gabapentin 300 Mg Capsule) 300 mg PO BID [facility] Last Admin: 10/05/23 08:17 Dose: 300 mg Documented By: JOSE Glucose (Glucose Gel 15 Gm Gel..Gram.) 15 gm PO Q15M PRN; Protocol PRN Reason: per Hypoglycemia Standing Ord. Guaifenesin (Guaifenesin La 600 Mg Tab.Er.12h) 600 mg PO BID [facility] Last Admin: 10/05/23 08:17 Dose: 600 mg Documented By: JOSE Ceftriaxone Sodium 1 gm/ (Sodium Chloride) 50 mls @ 100 mls/hr IV Q24H [facility] Last Infusion: 10/04/23 18:58 Dose: Infused Documented By: BRIAN Insulin Human Lispro (Insulin Lispro 100 Unit/Ml 3 Ml Vial) 0 unit SUBCUT QIDACHS [facility]; Protocol Last Admin: 10/05/23 08:17 Dose: 4 unit Documented By: JOSE Melatonin (Melatonin 3 Mg Tablet) 6 mg PO BEDTIME PRN PRN Reason: Insomnia Ondansetron HCl (Ondansetron Hcl 4 Mg/2 Ml Vial) 4 mg IVPUSH Q8H PRN PRN Reason: Nausea and Vomiting Sitagliptin Phosphate (Sitagliptin Phosphate 50 Mg Tablet) 50 mg PO DAILY [facility] Last Admin: 10/05/23 08:17 Dose: 50 mg Documented By: JOSE Sodium Chloride (0.9 % Sodium Chloride Flush 3 Ml Syringe) 3 ml IVFLUSH QSHIFT [facility] Last Admin: 10/05/23 08:18 Dose: 3 ml Documented By: JOSE Vitamin E (Vitamin E (Dl,Tocopheryl Acet) 180 Mg (400 Unit) Capsule) 180 mg PO DAILY [facility] Last Admin: 10/05/23 08:17 Dose: 180 mg Documented By: JOSE Labs 10/05/23 10:11 10/05/23 10:11 Labs: Laboratory Results - last 24 hr 10/04/23 10/04/23 10/04/23 16:22 20:01 23:54 MCV MCH MCHC RDW Plt Count MPV Absolute Nucleated RBC Nucleated RBC % (auto) Anion Gap Estim Creat Clear Calc Estimated GFR POC Glucose 227 H 306 H 246 H Random Glucose Calcium COVID-19 ([facility]) COVID-19 Clin Com 10/05/23 10/05/23 10/05/23 07:11 09:10 10:11 MCV 81.0 MCH 25.6 L MCHC 31.6 RDW 15.3 Plt Count 263 MPV 8.8 L Absolute Nucleated RBC 0.020 H Nucleated RBC % (auto) 0.2 Anion Gap 14 Estim Creat Clear Calc 18.4 Estimated GFR > 60 POC Glucose 212 H Random Glucose 267 H Calcium 9.2 COVID-19 ([facility]) Positive A COVID-19 Clin Com See Note 10/05/23 11:02 MCV MCH MCHC RDW Plt Count MPV Absolute Nucleated RBC Nucleated RBC % (auto) Anion Gap Estim Creat Clear Calc Estimated GFR POC Glucose 241 H Random Glucose Calcium COVID-19 ([facility]) COVID-19 Clin Com Microbiology Microbiology Results: Microbiology 10/03/23 Unknown Urine Culture - Final Urine clean catch - Urine eslby top Escherichia coli 10/03/23 15:33 Blood Culture - Preliminary Blood - Venous No growth after 24 hours. 10/03/23 15:33 Blood Culture - Preliminary Blood - Venous No growth after 24 hours. Assessment and Plan (1) Weakness: Status: Acute Plan Pt is an 83-year-old female with a PMH significant for?Dementia , HLD, bbi-ipdlrqo-bziabbrfe diabetes type 2, and peripheral neuropathy who presents to the ED with?with generalized weakness and sudden onset inability to walk x6 days. Patient and her live in [place] and are visiting their daughters and their families for the holidays. Symptoms started on 09/26/2023 when patient suddenly could not walk. Tested positive for COVID the following day on 09/27/2023. Pt will be admitted to the hospital for treatment and further evaluation of sudden onset lower extremity weakness and acute encephalopathy in the setting of COVID infection. 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 covid encephalopathy, no obvious upper motor neuron signs, conservative management for now, with PT/OT clinically improving, moving all extremities, ambulated with PT Acute encephalopathy with hx of dementia better today In the setting of COVID infection and UTI CT of head negative for acute intracranial pathology Monitor mentation Transaminitis AST 50, ALT 39, alk-phos 130 Unclear etiology, baseline unknown Patient asymptomatic Ass-xmrlzlg-rpxtrusxg diabetes type 2 sliding scale insulin Continue Januvia, resume metformin Diabetic diet Peripheral neuropathy Continue gabapentin HLD Continue ezetimibe and statin Full Code Attending:?Dr. Matt DVT Prophylaxis: Lovenox DISPO Plan for STR when bed available continued hospital stay for treatment and further evaluation of sudden onset lower extremity weakness and acute encephalopathy in the setting of COVID infection and UTI Patient will require specialist consultation, PT evaluation, and likely additional imaging and workup. Given patient's inability to ambulate on her own or take care of herself, she will require hospitalist care, monitoring, and evaluation. Quality Stroke Does the patient have a stroke diagnosis?: No VTE Prior VTE?: No VTE Risk Level:: Medical - moderate - high VTE Device Contraindication: Treatment Not Indicated VTE Drug Contraindication: N/A - Med Ordered
[2023-10-05 15:07] VITALS: BP 111/52; PULSE 88; RESP 20; O2SAT 96
[2023-10-05 15:25] VITALS: BMI 22.4
[2023-10-05 16:23] LABS: Glucose, Whole Blood 304 mg/dL (60-115)
[2023-10-05] MEDS: Insulin Lispro 100 UNIT/ML 3 ML VIAL SUBCUT ×2 (17:16→21:49)
[2023-10-05 19:42] VITALS: BP 113/58; PULSE 79; RESP 20; TEMP 36.8; O2SAT 95
[2023-10-05] MEDS: Enoxaparin Sodium 40 MG/0.4 ML SYRINGE SUBCUT (19:47)
[2023-10-05] MEDS: bisacodyL 10 MG SUPP.RECT PR (19:48)
[2023-10-05] MEDS: 0.9 % Sodium Chloride Flush 3 ML SYRINGE IVFLUSH ×2 (19:49→21:51)
[2023-10-05 20:01] LABS: Glucose, Whole Blood 259 mg/dL (60-115)
[2023-10-05] MEDS: Atorvastatin Calcium 80 MG TABLET PO (21:47)
[2023-10-05] MEDS: guaiFENesin LA 600 MG TAB.ER.12H PO (21:48)
[2023-10-05] MEDS: Gabapentin 300 MG CAPSULE PO (21:48)
[2023-10-05 23:34] VITALS: BP 105/55; PULSE 81; RESP 17; TEMP 36.8; O2SAT 99
[2023-10-06] VITALS (7 sets, daily range): BP systolic 102–136; BP diastolic 52–68; PULSE 73–91; RESP 15–20; TEMP 36.1–36.8; O2SAT 90–98
[2023-10-06 08:10] LABS: Glucose, Whole Blood 217 mg/dL (60-115)
[2023-10-06] MEDS: Insulin Lispro 100 UNIT/ML 3 ML VIAL SUBCUT ×2 (09:37→16:50)
[2023-10-06] MEDS: Vitamin E (Dl,Tocopheryl Acet) 180 MG (400 UNIT) CAPSULE PO (09:38)
[2023-10-06] MEDS: Ezetimibe 10 MG TABLET PO (09:38)
[2023-10-06] MEDS: Gabapentin 300 MG CAPSULE PO ×2 (09:38→21:06)
[2023-10-06] MEDS: 0.9 % Sodium Chloride Flush 3 ML SYRINGE IVFLUSH (09:38)
[2023-10-06] MEDS: guaiFENesin LA 600 MG TAB.ER.12H PO ×2 (09:38→21:06)
[2023-10-06] MEDS: metFORMIN HCl 1,000 MG TABLET 1000 MG PO ×2 (09:38→16:49)
[2023-10-06] MEDS: SITagliptin Phosphate 50 MG TABLET PO (09:38)
--- NOTE | 2023-10-06 11:20 | MHC.CM.PN ---
CM RECEIVED MESSAGE FROM [facility] REQUESTING PT'S SS# TO VERIFY INSURANCE, CM CALLED PT'S DTR LIZZETTE AT NUMBER ON FILE, LIZZETTE DID NOT ANSWER HOWEVER CALLED CM RIGHT BACK AND CURRENTLY DECLINES TO GET PT'S SS# AND IS INSISTENT THAT PT GET UP AND WALKING AND IS ALSO REQUESTING A WALKER FOR PT, P.T. AND HOSPITALIST AWARE.
[2023-10-06 11:43] LABS: Glucose, Whole Blood 295 mg/dL (60-115)
--- NOTE | 2023-10-06 12:49 | P.PNIM_ITS ---
Subjective Subjective Date of Service: 10/06/23 Review of Systems Follow-up weakness, COVID encephalopathy more awake today, oob to chair still with cough Physical Exam 2 Vital Signs: Vital Signs: Last Vital Signs Temp 97.0 F 10/06/23 12:00 Pulse 84 10/06/23 12:00 Resp 20 10/06/23 12:00 BP 126/56 L 10/06/23 12:00 Pulse Ox 98 10/06/23 12:00 O2 Del Method Nasal Cannula 10/06/23 12:00 O2 Flow Rate 2 10/06/23 12:00 BMI result Body Mass Index 22.4 Appearing in no acute distress lung sounds are clear to auscultation heart regular rate rhythm, clear S1, S2 positive bowel sounds, abdomen is soft, nontender neuro patient is alert x3, no focal deficits Objective Data Active Medications Acetaminophen (Acetaminophen 325 Mg Tablet) 650 mg PO Q6H PRN PRN Reason: Pain, Mild (Pain Scale 1-3) Last Admin: 10/05/23 15:35 Dose: 650 mg Documented By: JOSE Artificial Tears (Artificial Tears 15 Ml Drops) 1 drop EYE-BOTH Q2H PRN PRN Reason: Dry Eye(S) Atorvastatin Calcium (Atorvastatin Calcium 80 Mg Tablet) 80 mg PO BEDTIME [facility] Last Admin: 10/05/23 21:47 Dose: 80 mg Documented By: PEREZ Bisacodyl (Bisacodyl 5 Mg Tablet.Dr) 5 mg PO DAILY PRN PRN Reason: Constipation Bisacodyl (Bisacodyl 10 Mg Supp.Rect) 10 mg [place] BID PRN PRN Reason: Constipation Last Admin: 10/05/23 19:48 Dose: 10 mg Documented By: PEREZ Dextrose (Dextrose 50 % 25 Gm/50 Ml Syringe) 25 gm IVPUSH Q15M PRN; Protocol PRN Reason: per Hypoglycemia Standing Ord. Ezetimibe (Ezetimibe 10 Mg Tablet) 10 mg PO DAILY [facility] Last Admin: 10/06/23 09:38 Dose: 10 mg Documented By: JOSE Enoxaparin Sodium (Enoxaparin Sodium 30 Mg/0.3 Ml Syringe) 30 mg SUBCUT Q24H [facility] Gabapentin (Gabapentin 300 Mg Capsule) 300 mg PO BID [facility] Last Admin: 10/06/23 09:38 Dose: 300 mg Documented By: JOSE Glucose (Glucose Gel 15 Gm Gel..Gram.) 15 gm PO Q15M PRN; Protocol PRN Reason: per Hypoglycemia Standing Ord. Guaifenesin (Guaifenesin La 600 Mg Tab.Er.12h) 600 mg PO BID [facility] Last Admin: 10/06/23 09:38 Dose: 600 mg Documented By: JOSE Ceftriaxone Sodium 1 gm/ (Sodium Chloride) 50 mls @ 100 mls/hr IV Q24H [facility] Last Infusion: 10/05/23 16:35 Dose: Infused Documented By: JOSE Insulin Human Lispro (Insulin Lispro 100 Unit/Ml 3 Ml Vial) 0 unit SUBCUT QIDACHS [facility]; Protocol Last Admin: 10/06/23 09:37 Dose: 4 unit Documented By: JOSE Melatonin (Melatonin 3 Mg Tablet) 6 mg PO BEDTIME PRN PRN Reason: Insomnia Metformin HCl (Metformin Hcl 1,000 Mg Tablet) 1,000 mg PO BIDWM [facility] Last Admin: 10/06/23 09:38 Dose: 1,000 mg Documented By: JOSE Ondansetron HCl (Ondansetron Hcl 4 Mg/2 Ml Vial) 4 mg IVPUSH Q8H PRN PRN Reason: Nausea and Vomiting Sitagliptin Phosphate (Sitagliptin Phosphate 50 Mg Tablet) 50 mg PO DAILY [facility] Last Admin: 10/06/23 09:38 Dose: 50 mg Documented By: JOSE Sodium Chloride (0.9 % Sodium Chloride Flush 3 Ml Syringe) 3 ml IVFLUSH QSHIFT [facility] Last Admin: 10/06/23 09:38 Dose: 3 ml Documented By: JOSE Vitamin E (Vitamin E (Dl,Tocopheryl Acet) 180 Mg (400 Unit) Capsule) 180 mg PO DAILY [facility] Last Admin: 10/06/23 09:38 Dose: 180 mg Documented By: JOSE Labs 10/05/23 10:11 10/05/23 10:11 Labs: Laboratory Results - last 24 hr 10/05/23 10/05/23 10/05/23 14:01 16:18 19:52 POC Glucose 299 H 304 H 259 H 10/06/23 10/06/23 07:54 11:31 POC Glucose 217 H 295 H Microbiology Microbiology Results: Microbiology 10/03/23 15:33 Blood Culture - Preliminary Blood - Venous No growth after 48 hours. 10/03/23 15:33 Blood Culture - Preliminary Blood - Venous No growth after 48 hours. 10/03/23 Unknown Urine Culture - Final Urine clean catch - Urine selby top Escherichia coli Assessment and Plan (1) Weakness: Status: Acute Plan Pt is an 83-year-old female with a PMH significant for?Dementia , HLD, ttj-bjyaejz-slcbyztzw diabetes type 2, and peripheral neuropathy who presents to the ED with?with generalized weakness and sudden onset inability to walk x6 days. Patient and her live in [place] and are visiting their daughters and their families for the holidays. Symptoms started on 09/26/2023 when patient suddenly could not walk. Tested positive for COVID the following day on 09/27/2023. Pt will be admitted to the hospital for treatment and further evaluation of sudden onset lower extremity weakness and acute encephalopathy in the setting of COVID infection. 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 covid encephalopathy, no obvious upper motor neuron signs, conservative management for now, with PT/OT clinically improving, moving all extremities, ambulated with PT Acute encephalopathy with hx of dementia better today In the setting of COVID infection and UTI CT of head negative for acute intracranial pathology Monitor mentation Transaminitis AST 50, ALT 39, alk-phos 130 Unclear etiology, baseline unknown Patient asymptomatic Zdt-cutzegj-delpufoch diabetes type 2 sliding scale insulin Continue Januvia, resume metformin Diabetic diet Peripheral neuropathy Continue gabapentin HLD Continue ezetimibe and statin Full Code Attending:?Dr. Martino DVT Prophylaxis: Lovenox DISPO Plan for STR when bed available continued hospital stay for treatment and further evaluation of sudden onset lower extremity weakness and acute encephalopathy in the setting of COVID infection and UTI Patient will require specialist consultation, PT evaluation, and likely additional imaging and workup. Given patient's inability to ambulate on her own or take care of herself, she will require hospitalist care, monitoring, and evaluation. Quality Stroke Does the patient have a stroke diagnosis?: No VTE Prior VTE?: No VTE Risk Level:: Medical - moderate - high VTE Device Contraindication: Treatment Not Indicated VTE Drug Contraindication: N/A - Med Ordered
--- NOTE | 2023-10-06 13:56 | MHC.CM.PN ---
CM CONTACTED PT'S [facility] MEDICARE PLAN AT [phone] AND SPOKE W/AGENT ON PROVIDER LINE, PER AGENT PT IS ONLY COVERED FOR ED AND URGENT CARE OUT OF STATE AND OUT OF SERVICE AREA, CALL REF #[id number], HOSPITALIST AND CM MET W/ALT HCP LIZZETTE AT BEDSIDE AND LIZZETTE IS AWARE PT WILL NOT BE COVERED FOR INPT STR OR OUTPT SERVICES. PER DISCUSSION ANTIC PT WILL DISCHARGE TO CARE OF FAMILY TOMORROW 10/07 HOWEVER LIZZETTE DID NOT WANT TO MAKE A PLAN BEFORE DISCUSSING W/HER SISTER, CM RECOMMENDED LIZZETTE CONTACT [facility] ON AGING TO BORROW A WALKER OR W/C HOWEVER FAMILY A MALE FAMILY MEMBER ALSO PRESENT REPORTS THEY DO HAVE A WALKER AT HOME PT CAN USE, HOSPITALIST ALSO REPORTS SHE IS WILLING TO WRITE SCRIPT FOR WALKER IF NECESSARY. CM WILL CONT TO FOLLOW.
[2023-10-06 16:27] LABS: Glucose, Whole Blood 245 mg/dL (60-115)
[2023-10-06 19:54] LABS: Glucose, Whole Blood 136 mg/dL (60-115)
[2023-10-06] MEDS: Enoxaparin Sodium 30 MG/0.3 ML SYRINGE SUBCUT (21:05)
[2023-10-06] MEDS: Atorvastatin Calcium 80 MG TABLET PO (21:06)
[2023-10-07] MEDS: 0.9 % Sodium Chloride Flush 3 ML SYRINGE IVFLUSH ×2 (00:58→08:27)
[2023-10-07 03:06] VITALS: BP 136/62; PULSE 79; RESP 20; TEMP 36.3; O2SAT 91
[2023-10-07 07:23] VITALS: BP 135/63; PULSE 84; RESP 20; TEMP 36.4; O2SAT 92
[2023-10-07 07:55] LABS: Glucose, Whole Blood 220 mg/dL (60-115)
--- NOTE | 2023-10-07 07:59 | PM.DS ---
DS: Providers Provider Date of Service: 10/07/23 Date of admission: 10/02/23 19:39 Primary care physician: Unknown Physician Consults: 10/02/23 19:21 Consult to Neurology Routine Consulting Provider: [facility] Reason for consultation: weakness, unable to ambulate DS: Diagnosis Discharge Diagnosis (1) Weakness: Status: Acute DS: Summary Hospital Course Hospital Course: [facility] admitting provider. Pt is an 83-year-old female with a PMH significant for?HLD, gyr-zgeixiz-hijizzhom diabetes type 2, and peripheral neuropathy who presents to the ED with?with generalized weakness and sudden onset inability to walk x6 days. Patient and her live in [place] and are visiting their daughters and their families for the holidays. Symptoms started on 09/26/2023 when patient suddenly could not walk. Tested positive for COVID the following day on 09/27/2023 and was seen and evaluated at the ED. workup was negative and patient was discharged home without any intervention. Prior to COVID diagnosis pt was able to ambulate on her own without assistance, walking on and off the plane and up and down stairs. Patient today presents as slightly confused and uncertain exactly why she is here, so HPI supplemented by family who is at bedside. Family notes that since initial presentation to the ED patient's condition continued to decline. Patient has continued to not be able to walk, has had declining strength and increasing shakiness in upper extremities, and has had worsening confusion. Patient does not have a diagnosis of dementia, and she is currently much more confused than she has ever been according to the family. They note there are times when patient is unable to recognize family members, and occasionally is unable to answer questions appropriately were changes topics unexpectedly. Patient also had a fall yesterday where she hit the back of her head on the floor, stating she was dizzy. Has also not been eating or drinking much of anything at all for the past 2 days. Family also note that she has a lack of control with her mouth when trying to eat, drink, or spit after coughing, stating it is ?almost as if she does not know where her mouth is?. In the ED patient was not able to support her own weight on her feet or able to picker and sorter load and unload her feet when ambulating. Was walking with a shuffling gait. Has had chronic lower back pain for a number of years. Also complains of cough productive of yellowish sputum x6 days. Patient denies shortness of breath. No chest pain/pressure, palpitations. Denies ptosis. No fever, chills, nausea, vomiting. In the ED pt was hypertensive but otherwise vitals WNL. Patient is satting at 97% on RA. Labs were significant for stable normocytic anemia 9.9/31.1, AST 50, ALT 39, alk-phos 130. Troponin negative. TSH WNL at 1.06. CXR was unremarkable with stable appearance of heart and lungs and no consolidation. CT of head negative for acute intracranial pathology, but found significant paraspinal sinus disease. CT of cervical spine negative for acute fracture or traumatic subluxation. EKG demonstrated sinus rhythm first-degree AV block but no significant ST elevations or depressions. Pt will be admitted to the hospital for treatment and further evaluation of sudden onset lower extremity weakness and acute encephalopathy in the setting of COVID infection. 83-year-old woman admitted with acute encephalopathy secondary to COVID-19 and the E coli UTI. Patient was never noted to be hypoxic, antibiotics and steroids not used or necessary. Her encephalopathy seem to resolve after treatment for the UTI. Urine culture came back E coli. Initially treated with IV Rocephin, she will complete course with Ceftin. She was seen evaluated by Neurology who thought also symptoms were worsened by her underlying dementia. According to the patient's family she had not been officially diagnosed with dementia. She and her live in [place] and unfortunately due to her managed care insurance they were unable to qualify for short-term rehab or any other rehab benefits. Patient or her family were unable to pay [id number] for any of these services. However during the admission patient had worked with physical therapy and had been able to ambulate with assistance. Discussed this with family, they plan on taking her home ([facility] [place]) and helping her to be able to ambulate enough to board an air plane and get back home, sounds like some of the family members will be accompanying them. When she gets back to floor she can follow-up with primary care provider if further physical therapy is needed. Diabetes mellitus type 2. Continue home medications Peripheral neuropathy. Continue gabapentin Hyperlipidemia. Continue Zetia and statin Time Attestation Discharge coordination time: Greater than 30 minutes Quality: Safe Use of Opioids Does Pt have an Active Cancer Diagnosis on the Problem List?: No Quality: Stroke Does the patient have a stroke diagnosis?: No Physical Exam Vital Signs: Vital Signs: Last Vital Signs Temp 97.6 F 10/07/23 07:23 Pulse 84 10/07/23 07:23 Resp 20 10/07/23 07:23 BP 135/63 10/07/23 07:23 Pulse Ox 92 10/07/23 07:23 O2 Del Method Room Air 10/07/23 07:23 O2 Flow Rate 2 10/06/23 12:00 BMI result Body Mass Index 22.4 Appearing in no acute distress head is normocephalic atraumatic eyes pupils are PERRLA sclera is anicteric mouth throat mucous membranes are intact and moist neck is supple no lymphadenopathy, no JVD noted lung sounds are clear to auscultation heart regular rate rhythm, clear S1, S2 positive bowel sounds, abdomen is soft, nontender neuro patient is alert x3, no focal deficits DS: Data Data Completed and Pending Labs on day of discharge: Laboratory Results - last 24 hr 10/06/23 10/06/23 10/06/23 07:54 11:31 15:57 POC Glucose 217 H 295 H 245 H 10/06/23 10/07/23 19:28 07:26 POC Glucose 136 H 220 H Preliminary micro results at discharge 10/03/23 15:33 Blood Culture - Preliminary Blood - Venous No growth after 48 hours. 10/03/23 15:33 Blood Culture - Preliminary Blood - Venous No growth after 48 hours. Discharge Plan Discharge Anticipated Discharge Date/Time: 10/07/23 07:54 Patient Disposition: Home, Self-Care Discharge Diagnosis: COVID-19 encephalopathy E coli UTI Discharge Medications: New cefuroxime axetil 500 mg tablet 500 mg PO BID Qty: 6 0RF Continued metformin 1,000 mg tablet 1,000 mg PO BID glimepiride 4 mg tablet 4 mg PO BID gabapentin 300 mg capsule 300 mg PO BID vitamin E 268 mg (400 unit) Capsule 268 mg PO DAILY ezetimibe 10 mg tablet 10 mg PO DAILY rosuvastatin 20 mg tablet 20 mg PO BEDTIME Januvia 50 mg tablet 50 mg PO DAILY Artificial Tears (PF) 0.1-0.3 % Dropperette 1 drp ophthalmic (eye) Q2H PRN (Reason: Dry Eye(S)) Discharge Orders: Discharge Order (Routine); Ordered 10/07/23 Ordered By: Mariela Jimenez Diet: Advance to usual diet Activity on Discharge: As tolerated Stand Alone Forms: Patient Portal Discharge page Care Plan Goals: May use walker for assistance continue treatment for UTI Health Concerns: COVID-19 encephalopathy E coli UTI Plan of Treatment: Plan is for patient to return to floor and follow-up with primary care provider. May seek further assistance such as physical therapy if needed as per her primary care team. Assessment: see discharge summary
[2023-10-07] MEDS: Insulin Lispro 100 UNIT/ML 3 ML VIAL SUBCUT (08:26)
[2023-10-07] MEDS: SITagliptin Phosphate 50 MG TABLET PO (08:26)
[2023-10-07] MEDS: guaiFENesin LA 600 MG TAB.ER.12H PO (08:27)
[2023-10-07] MEDS: Ezetimibe 10 MG TABLET PO (08:27)
[2023-10-07] MEDS: Vitamin E (Dl,Tocopheryl Acet) 180 MG (400 UNIT) CAPSULE PO (08:27)
[2023-10-07] MEDS: Gabapentin 300 MG CAPSULE PO (08:27)
[2023-10-07] MEDS: metFORMIN HCl 1,000 MG TABLET 1000 MG PO (08:27)
[2023-10-07] MEDS: bisacodyL 10 MG SUPP.RECT PR (08:29)
--- NOTE | 2023-10-07 12:05 | MHC.CM.PN ---
Pt is medically cleared for D/C home with family support. Family to transport her home.
== END 2023-10-07 11:25 | disposition home or self-care (01) | DRG 177 ==
LOC: HO.ED 19:31 → HO.EDOVER 19:39 → HO.IMC 10-03 07:53
PROVIDERS: Admitting Provider Student in an Organized Health Care Education/Training Program; Emergency Provider Emergency Medicine; Visit Provider Nurse Practitioner Acute Care
DX: U07.1 COVID-19 (principal); G92.8 Other toxic encephalopathy; N39.0 Urinary tract infection, site not specified; B96.20 Unspecified Escherichia coli [E. coli] as the cause of diseases classified elsewhere; E78.5 Hyperlipidemia, unspecified; F01.C0 Vascular dementia, severe, without behavioral disturbance, psychotic disturbance, mood disturbance, and anxiety; D64.9 Anemia, unspecified; I10 Essential (primary) hypertension; E11.42 Type 2 diabetes mellitus with diabetic polyneuropathy; Z91.81 History of falling; Z79.84 Long term (current) use of oral hypoglycemic drugs; Z79.899 Other long term (current) drug therapy
CPT/HCPCS: 36415; 70450; 71045; 72125; 80048; 80076; 81001; 82607; 82746; 82947; 83690; 84443; 84484; 85007; 85025; 85027; 87040; 87086; 87088; 87186; 87635; 93005; 97116; 97162; 97530; 99285; J0696; J1650

== ENCOUNTER → 2023-10-02 17:04 | Outpatient (BNV) | payer MEDICARE, SELFPAY | PROVIDERS: Admitting Provider Student in an Organized Health Care Education/Training Program; Emergency Provider Emergency Medicine; Visit Provider Internal Medicine Cardiovascular Disease | DX: I44.0 Atrioventricular block, first degree (principal) | CPT/HCPCS: 93010 ==

== ENCOUNTER → 2023-10-02 19:39 | Outpatient (BNV) | payer MEDICARE, SELFPAY | PROVIDERS: Admitting Provider Student in an Organized Health Care Education/Training Program; Emergency Provider Emergency Medicine; Visit Provider Student in an Organized Health Care Education/Training Program | DX: R53.1 Weakness (principal) | CPT/HCPCS: 99223; 99232; 99239 ==